=== PATIENT | female | born 1955 | race Caucasian/White ===

== ENCOUNTER 2017-12-24 06:21 | Day surgery (SDC) | payer BC ==
[2017-12-24] MEDS ORDERED: Lactated Ringers 1,000 ML IV SCH (06:30)
[2017-12-24] MEDS ORDERED: fentaNYL 100 MCG/2 ML SDV ONE (07:09)
[2017-12-24] MEDS ORDERED: Midazolam 1 MG/ML 2 ML SDV ONE (07:09)
[2017-12-24] MEDS ORDERED: Propofol 200 MG/20 ML SDV ONE (07:09)
--- NOTE | 2017-12-24 13:15 | OR ---
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 POSTOPERATIVE DIAGNOSES: 1. Unremarkable colonoscopy. 2. History of adenocarcinoma in a polyp. PROCEDURE: Colonoscopy to the cecum. ANESTHESIA: IV anesthesia with monitored anesthesia care. INDICATION: This 62-year-old white female is here for a colonoscopy to follow up a polyp removed 3 years ago which had a focus of adenocarcinoma within it. It met all the criteria for observation. I counseled her for a colonoscopy with possible biopsy and/or polypectomy including risks and alternatives, and she gave her informed consent to proceed. DESCRIPTION OF PROCEDURE: The patient was placed in the left lateral decubitus position. IV anesthesia was administered by the Anesthesia Service. Time-out was held. A rectal exam was performed, which was unremarkable. The flexible video Olympus colonoscope was introduced through her anus, up her rectum, and out her colon all way to the cecum. Once the cecum was reached, the scope was slowly withdrawn, examining the mucosa throughout. No mucosal abnormalities were noted. The area of the previous polyp was unremarkable. The scope was retroflexed in the rectum with the distal rectum appearing unremarkable. The scope was straightened and removed. She tolerated the procedure well. Ariel Lees MD /[id number]
== END 2017-12-24 09:18 | disposition home or self-care (01) ==
LOC: JP.SDS 06:21
PROVIDERS: ATTEND Surgery
DX: Z12.11 Encounter for screening for malignant neoplasm of colon (principal); Z85.038 Personal history of other malignant neoplasm of large intestine
CPT/HCPCS: 45378; J2250; J2704; J3010; J7120

== ENCOUNTER 2021-11-06 14:43 | Emergency (ER) | payer MEDICARE, OTHER ==
[2021-11-06] MEDS ORDERED: Bacitracin Oint 1 GM U/D Packet TOP ONE (15:23)
[2021-11-06] MEDS ORDERED: Lidocaine 1% with EPINEPHrine 1:100,000 50 ML MDV SUBCUT STA (15:23)
== END 2021-11-06 16:00 | disposition home or self-care (01) ==
LOC: JP.ED 14:43
DX: I83.891 Varicose veins of right lower extremity with other complications (principal); E78.00 Pure hypercholesterolemia, unspecified; Z88.8 Allergy status to other drugs, medicaments and biological substances
CPT/HCPCS: 12001; 99282; 99283-25

== ENCOUNTER 2024-07-28 11:19 | Emergency (ER) | payer MEDICARE, OTHER | END 2024-07-28 15:22 | disposition home or self-care (01) | LOC: JP.ED 11:19 | DX: I83.92 Asymptomatic varicose veins of left lower extremity (principal); Z88.8 Allergy status to other drugs, medicaments and biological substances; Z79.899 Other long term (current) drug therapy | CPT/HCPCS: 36415; 85379; 99283 ==

== ENCOUNTER 2025-02-19 06:41 | Day surgery (SDC) | payer MEDICARE, OTHER ==
[2025-02-19] MEDS ORDERED: fentaNYL 50 MCG/ML SDV ONE (07:12)
[2025-02-19] MEDS ORDERED: Propofol 200 MG/20 ML SDV ONE (07:12)
[2025-02-19] MEDS: Lactated Ringers 1,000 ML IV SCH (07:34)
== END 2025-02-19 11:00 | disposition home or self-care (01) ==
LOC: JP.SDS 06:41
PROVIDERS: ATTEND Surgery
DX: Z12.11 Encounter for screening for malignant neoplasm of colon (principal); K57.30 Diverticulosis of large intestine without perforation or abscess without bleeding; E66.9 Obesity, unspecified; E11.9 Type 2 diabetes mellitus without complications; Z88.8 Allergy status to other drugs, medicaments and biological substances; Z86.0100 Personal history of colon polyps, unspecified
CPT/HCPCS: 00812-QZ; J2704; J3010; J7120